=== PATIENT | male | born 1995 | race Caucasian/White ===

== ENCOUNTER 2023-10-14 08:04 | Outpatient (REF) | payer OTHER, SELFPAY ==
--- NOTE | ~2023-10-14 | US_ITS ---
EXAMINATION: US SCROTUM CLINICAL INFORMATION: Right testicular pain. COMPARISON: None available. TECHNIQUE: A sonogram of the scrotum was performed assessing aguilera-scale appearance and color Doppler flow. Spectral Doppler analysis of the arterial and venous flow were performed in the testes bilaterally. FINDINGS: RIGHT: Right testicle measures 4.3 x 2.4 x 3.7 cm, volume 20 mL. Parenchymal echotexture is homogeneous. No focal testicular parenchymal lesions are visualized. Spectral Doppler analysis of the arterial and venous flow is normal in the right testis. Right epididymal head is normal in size. A small right hydrocele is seen. No varicocele is seen. LEFT: Left testicle measures 4.4 x 2.3 x 3.0 cm, volume 16 mL. Parenchymal echotexture is homogeneous. No focal testicular parenchymal lesions are visualized. Spectral Doppler analysis of the arterial and venous flow is normal in the left testis. Left epididymal head is normal in size. There is a minimal left hydrocele. Left varicoceles are seen. US/US scrotum IMPRESSION: 1. Left varicoceles are seen. 2. A small right hydrocele is seen, and there is a minimal left hydrocele.
== END 2023-10-14 08:05 | disposition home or self-care (01) ==
LOC: HO.UMASIMG 08:04
PROVIDERS: Visit Provider Internal Medicine
DX: N50.811 Right testicular pain (principal)
CPT/HCPCS: 76870